=== PATIENT | female | born 1980 | race African-American/Black ===

== ENCOUNTER 2018-01-31 10:38 | Outpatient (CLI) | payer MEDICARE, MEDICAID ==
--- NOTE | 2018-01-31 15:06 | MRI ---
PRE AND POST CONTRAST ENHANCED MRI OF THE BRAIN: Date: 01-31-18 Comparison: 04-12-17 Technique: Multiplanar, multisequence MRI images were obtained of the brain. FINDINGS: Images demonstrate some minimal areas of increased signal on the FLARI sequences in the periventricul ar white matter, unchanged since the previous comparison exam. These are possible small and stable de myelinating lesions. The number and size have not significantly changed since the previous comparison exam. No evidence of enhancement seen on the contrast enhanced images to suggest acute newly develop ed lesions. No other masses or lesions noted. Normal flow voids seen in the major intracranial vessel s. Stable NV appearance of the brain. IMPRESSION: No newly developed masses or lesions seen. Areas of abnormal signal noted on previous examination are stable. POS: [facility]
--- NOTE | 2018-01-31 15:17 | MRI ---
PRE AND POST CONTRAST ENHANCED MRI OF THE CERVICAL SPINE: History: Multiple sclerosis. G35, G82.20 paraplegia. Technique: Multiplanar, multisequence pre and post contrast enhanced MRI images were obtained of the cervical spine. Comparison: 04-12-17 FINDINGS: Images demonstrate no evidence of obvious cord masses or lesions. No abnormal areas of enhancement se en in the spinal cord. There is an intraosseous hemangioma seen at the C6 level, unchanged since the previous comparison MRI . There is some diffuse spinal cord atrophy involving the C3 through C7 spinal cord. This has not sign ificantly changed since the previous comparison MRI. No newly developed lesion is seen within the sp inal cord. C1-2, C2-3: Unremarkable. C3-4: There is a mild broad based disc osteophyte complex minimally but not significantly compressing the thecal sac. The neural foramen are patent. C4-5: There is a broad based disc osteophyte complex centrally compressing the thecal sac at C4-5. Th ere is moderate to severe bilateral C4-5 neural foraminal narrowing due to uncal vertebral osteophyte hypertrophy. This is also unchanged since the previous exam. C5-6: There is a broad based disc osteophyte complex centrally compressing the thecal sac resulting i n a moderate degree of thecal sac compression. No evidence of cord compression is seen. There is mild bilateral C5-6 neural foraminal narrowing due to uncal vertebral osteophyte hypertrophy. This is sta ble and unchanged. C6: Again, intraosseous hemangioma is seen. No significant interval changes seen. C6-7: Unremarkable. C7-T1: Unremarkable. IMPRESSION: C4-5 and C5-6 neural foraminal narrowing and disc degenerative changes, unchanged since the previous comparison MRI. No significant interval change is seen. POS: [facility]
--- NOTE | 2018-01-31 15:35 | MRI ---
PRE AND POSTCONTRAST ENHANCED MRI IMAGES THORACIC SPINE: COMPARISON: Comparison is made to previous exam from 04/12/17. FINDINGS: Multiplanar, multisequence pre- and postcontrast-enhanced MRI images thoracic spine demonstrate again right T8 area of signal abnormalitie seen in the pedicle unchanged since the previous exam. No othe r vertebral body abnormality is seen. Disk spaces are unremarkable. The neural foramen are patent. Area of upper and mid thoracic spinal cord atrophy is again seen. Minimal areas of T2 signal increa se is seen in the anterior aspect of th cotto cord at the T4 and T5 levels. MRI appearance is stab le and unchanged. No newly developed masses or lesions seen. IMPRESSION: Stable MRI images of the spinal cord. POS: [facility]
[2018-01-31] MEDS ORDERED: Gadobenate Dimeglumine 529 MG/1 ML (20ML VIAL) ONE (15:43)
== END 2018-01-31 10:39 | disposition home or self-care (01) ==
LOC: MRI 10:38
PROVIDERS: ATTEND Psychiatry & Neurology Neurology
DX: G35 Multiple sclerosis (principal); G82.20 Paraplegia, unspecified; R20.2 Paresthesia of skin; M47.892 Other spondylosis, cervical region; M99.81 Other biomechanical lesions of cervical region
CPT/HCPCS: 70553; 72156; 72157; A9579

== ENCOUNTER 2018-08-08 09:02 | Outpatient (CLI) | payer MEDICARE, MEDICAID ==
[2018-08-08] MEDS ORDERED: Gadobenate Dimeglumine 529 MG/1 ML (20ML VIAL) ONE (12:07)
--- NOTE | 2018-08-08 15:04 | MRI ---
MRI BRAIN WITH AND WITHOUT CONTRAST: HISTORY: Multiple sclerosis. COMPARISON: 12/31/2017 TECHNIQUE: Multiplanar, multisequence MR images were obtained of the brain with and without IV contrast. FINDINGS: There are very minimal foci of abnormal high FLAIR signal in the periventricular white matter. These are stable compared to the prior examination, without new lesions. The most prominent is in the lef t parietal lobe, with a more subtle lesion in the right frontal periventricular white matter. No abn ormal enhancement is seen to suggest active disease. There is no evidence of hydrocephalus, intracranial hemorrhage, or extraaxial fluid collections. The expected flow voids are present. The calvarium and overlying soft tissues are unremarkable. The visualized paranasal sinuses and mast oid air cells are well aerated. IMPRESSION: Stable white matter foci may be secondary to multiple sclerosis. There is no evidence of active dise ase or progression of disease. POS: [facility]
--- NOTE | 2018-08-08 15:11 | MRI ---
MRI THORACIC SPINE WITH AND WITHOUT CONTRAST: 08/08/2018 HISTORY: Multiple sclerosis. COMPARISON: 01/31/2018 TECHNIQUE: Multiplanar, multisequence MR imaging of the thoracic cord with and without contrast. FINDINGS: There is no anterolisthesis or retrolisthesis seen within the thoracic spine. The sagittal STIR imaging demonstrates no focal area of osseous marrow edema. A trace of bilateral pleural fluid is noted. There is no significant central canal or neural foraminal stenosis at any level within the thoracic s pine. Stable T2 hyperintense lesion noted within the pedicle on the right, at the T8 level. As seen on prior imaging, there is subtle, vague, T2 hyperintensity within the upper thoracic cord, a t the T4 level, centrally, and involving the anterior right aspect of the cord at T5. There is stabl e mild upper thoracic cord volume loss. No new T2 hyperintensities are seen within the thoracic cord . Post contrast imaging demonstrates no abnormal enhancement involving the imaged vertebral bodies o r intervertebral disks. No enhancing lesions are seen within the thoracic cord. IMPRESSION: 1. Stable MRI of the thoracic spine, as described above. 2. Subtle T2 hyperintensity within the upper thoracic cord is again consistent with demyelinating di sease. 3. No enhancing lesions or new lesions are noted. POS: [facility]
--- NOTE | 2018-08-08 15:17 | MRI ---
MRI OF THE LUMBAR SPINE WITH AND WITHOUT CONTRAST 08/08/18 COMPARISON: None. HISTORY: Multiple sclerosis. TECHNIQUE: Multiplanar and multisequence MR imaging of the lumbar spine is provided with and without contrast. FINDINGS: The sagittal STIR imaging demonstrates no focal areas of osseous marrow edema. There is no anterolist hesis of retrolisthesis noted within the lumbar spine. On the basis of five lumbar type vertebral bod ies, conus medullaris terminates at the T12-L1 level. T12-L1: Mild bilateral facet hypertrophy. Intervertebral disc height and signal intensity within norm al limits with no central canal or neural foraminal stenosis. L1-2: No significant central canal or neural foraminal stenosis. Intervertebral disc height and signa l intensity within normal limits. L2-3: A small left foraminal disc protrusion. Intervertebral disc height and signal intensity within normal limits. No central canal or neural foraminal stenosis. L3-4: Mild facet hypertrophy on the left. Intervertebral disc height and signal intensity within norm al limits with no central canal and neural foraminal stenosis. L4-5: Mild facet hypertrophy with no central canal or neural foraminal stenosis. Intervertebral disc height and signal intensity within normal limits. L5-S1: Unremarkable. Postcontrast imaging demonstrates no abnormal enhancement within the lumbar spine. There is abnormal partially visualized lobulated T2 hyperintensity within the pelvis. This includes free pelvic fluid in the cul-de-sac and the left hemipelvis. There is a partially imaged lobulated, p ossibly septated, T2 hyperintense lesion within the right hemipelvis measuring at least 6.4 cm. Dedic ated imaging of the pelvis is advised. This is only seen on the sagittal imaging. It is not visualize d on the axial sequences. IMPRESSION: 1. Abnormalities within the pelvis including free pelvic fluid as well as a lobulated T2 hyperin tense right hemipelvis mass measuring at least 6.4 cm. Dedicated imaging of the pelvis via ultrasound is advised. 2. No significant central canal or neural foraminal stenosis within the lumbar spine. Code T
--- NOTE | 2018-08-08 15:25 | MRI ---
MRI OF THE CERVICAL SPINE WITH AND WITHOUT CONTRAST: Date: 08-08-18 History: Multiple sclerosis. Technique: Multiplanar, multisequence MR imaging of the cervical spine was obtained with and without contrast. FINDINGS: Stable C6 hemangioma noted. The sagittal STIR imaging demonstrates no focal area of osseous marrow ed dori. There is no anterolisthesis or retrolisthesis noted. C2-3: Intervertebral disc height and signal intensity within normal limits with no central or neural foraminal stenosis. C3-4: Intervertebral disc height and signal intensity within normal limits with no significant centra l canal or neural foraminal stenosis. C4-5: There is disc space narrowing and disc desiccation with central annular tear. There is disc bul ge and small left paracentral disc protrusion. There is associated mild central canal stenosis with e ffacement of the ventral thecal sac as well as bilateral mild neural foraminal stenosis, unchanged. C5-6: There is disc space narrowing, disc desiccation, and disc bulge with effacement of the ventral thecal sac and mild stable central canal stenosis. No significant neural foraminal stenosis. C6-7: No significant central canal or neural foraminal stenosis. There is mild disc bulge. C7-T1: No significant central canal or neural foraminal stenosis. Mild cervical cord volume loss is again noted, unchanged when compared to prior imaging. On the axial T2 weighted imaging there is hazy increased T2 signal within the cervical cord from the axial level of the C3-4 interspace through the axial level of the C6 vertebral level, grossly unchang ed, consistent with the patient's history of demyelinating disease. There is associated cervical cord volume loss. These findings are stable when compared to multiple prior examination. No new lesions a re noted. There is no abnormal enhancement identified within the cervical spine. IMPRESSION: Stable cervical spine MRI as detailed above. POS: [facility]
== END 2018-08-08 09:03 | disposition home or self-care (01) ==
LOC: MRI 09:02
PROVIDERS: ATTEND Psychiatry & Neurology Neurology
DX: G35 Multiple sclerosis (principal); R93.7 Abnormal findings on diagnostic imaging of other parts of musculoskeletal system; R90.82 White matter disease, unspecified; M50.321 Other cervical disc degeneration at C4-C5 level; M50.221 Other cervical disc displacement at C4-C5 level; M48.02 Spinal stenosis, cervical region; M99.81 Other biomechanical lesions of cervical region; M50.322 Other cervical disc degeneration at C5-C6 level; M50.823 Other cervical disc disorders at C6-C7 level; D18.09 Hemangioma of other sites
CPT/HCPCS: 70553; 72156; 72157; 72158; A9579

== ENCOUNTER 2019-01-10 08:29 | Outpatient (CLI) | payer MEDICARE, MEDICAID ==
[2019-01-10] MEDS ORDERED: Gadobenate Dimeglumine 529 MG/1 ML (20ML VIAL) ONE (09:28)
--- NOTE | 2019-01-10 11:23 | MRI ---
FExam: Brain MRI with and without contrast HISTORY: Multiple sclerosis COMPARISON: 08/08/2018, 04/12/2017 FINDINGS: Gradient echo sequence: No hemorrhage Calvarium: Appropriate T1 marrow signal intensity Midline brain parenchyma: Unremarkable Cerebrum:Stable minimal T2 and FLAIR white matter hyperintensities involving the left and right coron a radiata/centrum semiovale. No associated restricted diffusion or enhancement. Ventricles: No evidence of hydrocephalus. Sinuses and mastoid air cells: Adequate aeration Diffusion: Central arterial flow is maintained. Absent restricted diffusion. Postcontrast images: No pathologic enhancement of the brain parenchyma. IMPRESSION: 1. Stable minimal T2 and FLAIR white matter hyperintensities without associated enhancement or restr icted diffusion. 2. No MR evidence of an active demyelinating plaque.
--- NOTE | 2019-01-10 11:29 | MRI ---
FPre and postcontrast enhanced MRI images lumbar spine. Multiplanar multisequence pre and postcontrast enhanced MRI images lumbar spine obtained. Again areas of abnormal septated fluid density seen in the pelvis anterior to the sacrum coccygeal re gion. Pelvic pathology cannot be excluded correlate with pre and postcontrast enhanced MRI of the pel vis. L1-2: Unremarkable except L2-3: There is minimal facet hypertrophy. A tiny amount of fluid seen in th e L2-3 facet joint. L3-4: There is minimal facet hypertrophy. Central canal and neural foramen are patent. L5-4-5: There is minimal facet hypertrophy. No significant degree of central or neural foraminal narr owing seen. L5-S1: Unremarkable. IMPRESSION: septated increased T2 signal areas seen within the pelvis. Cystic pelvic malignancy canno t be excluded. Correlate with additional pelvic imaging and clinical exam.
--- NOTE | 2019-01-10 11:30 | MRI ---
FMRI cervical spine with and without contrast: 01/10/2019 COMPARISON: 08/08/2018 HISTORY: Multiple sclerosis TECHNIQUE: Multiplanar multisequence MR imaging of the cervical spine with and without contrast FINDINGS: Stable T2 hyperintense vertebral body lesion at C6, configuration most consistent with a be nign hemangioma. STIR imaging demonstrates no focal area of osseous marrow edema. C2-3: No central canal or neural foraminal stenosis C3-4: No significant central canal or neural foraminal stenosis C4-5: There is disc space narrowing and disc desiccation with disc bulge partially effacing the ventr al thecal sac and causing mild central canal stenosis. There is mild/moderate neural foraminal stenos is on the right on the basis of uncovertebral osteophyte formation and disc bulge. No significant lef t neural foraminal stenosis. C5-6: There is disc space narrowing and disc desiccation with disc bulge partially effacing the ventr al thecal sac and causing mild central canal stenosis. No significant neural foraminal stenosis on ei ther side. C6-7: There is disc desiccation and mild disc bulge with no central canal or neural foraminal stenosi s. C7-T1: No significant central canal or neural foraminal stenosis. Postcontrast imaging demonstrates no abnormal enhancement involving the cervical cord, the imaged oss eous structures, or the intervertebral discs aside from the stable hemangioma of C6 vertebral body. As seen on prior imaging there are foci of increased T2 signal within the cervical cord consistent wi th the patient's history of demyelinating disease. This includes a faint focus of increased signal ac tivity within the anterior aspect of the cord at the cervical medullary junction. Patchy areas of inc reased signal intensity are also noted at the C3-4 level, C4-5 level, and C5-6 level. There is associ ated volume loss involving the cervical cord. No enhancing cord lesions. No new lesions are seen. IMPRESSION: No significant interval change in spinal cord volume loss and multiple foci of increased signal consistent with multiple sclerosis. No new lesions or enhancing lesions. Degenerative changes as detailed above.
--- NOTE | 2019-01-10 11:37 | MRI ---
FPre and postcontrast enhanced MRI images thoracic spine. HISTORY: Multiple sclerosis. Comparison made to previous MRI from 08/08/2018. Pre and postcontrast enhanced MRI images thoracic spine demonstrate small areas of increased T2 signa l in the right anterior T4 and T5 levels. These areas were present on previous comparison MRI and are unchanged. No evidence of other masses are newly developed lesions seen. Area of signal abnormality remains in the right T7 pedicle. No significant evidence of disc herniations, spinal stenosis or neural foraminal narrowing seen. IMPRESSION: Stable MRI appearance of the thoracic spine.
== END 2019-01-10 08:30 | disposition home or self-care (01) ==
LOC: MRI 08:29
PROVIDERS: ATTEND Nurse Practitioner Acute Care
DX: G35 Multiple sclerosis (principal); G82.20 Paraplegia, unspecified; M47.812 Spondylosis without myelopathy or radiculopathy, cervical region; R90.89 Other abnormal findings on diagnostic imaging of central nervous system
CPT/HCPCS: 70553; 72156; 72157; 72158; A9577

== ENCOUNTER 2019-07-19 12:02 | Outpatient (CLI) | payer MEDICARE, MEDICAID ==
--- NOTE | 2019-07-19 14:51 | MRI ---
Exam: Brain MRI with and without contrast HISTORY: Follow-up exam for multiple sclerosis. COMPARISON: 01/10/2019 FINDINGS: Gradient echo sequence: No hemorrhage Calvarium: Appropriate T1 marrow signal intensity Midline brain parenchyma: Unremarkable Cerebrum:No parenchymal mass, mass effect or midline shift. Brain volume is age-appropriate. Cortical stephens-white matter differentiation preserved. White matter: Stable solitary left frontal and right posterior coleman radiata/centrum semiovale white matter hyperintensities. No associated restricted diffusion or enhancement. Ventricles: No evidence of hydrocephalus. Sinuses and mastoid air cells: Adequate aeration Diffusion: Central arterial flow is maintained. Absent restricted diffusion. Postcontrast images: No pathologic enhancement of the brain parenchyma. IMPRESSION: 1. No significant interval change. Stable T2 and FLAIR white matter hyperintensities. 2. No associated restricted diffusion or enhancement to suggest active demyelination..
--- NOTE | 2019-07-19 15:02 | MRI ---
MRI THORACIC SPINE WITH AND WITHOUT CONTRAST: Multiplanar, multisequential imaging obtained including postcontrast images. INDICATION: Followup multiple sclerosis. COMPARISON: Comparison s made to MRI thoracic spine 01/10/2019 and 08/08/2018. FINDINGS: T2 sequences show increased signal in the thoracic cord at the T4 and T5 levels. This is not appreci ated in the sagittal T2 images but is seen on the gradient echo sagittal. No definite enhancement is identified in this region on the postcontrast images. The signal abnormality in the cord at this level appears stable when compared to the prior exam of 01/10/2019. Thoracic vertebrae maintain normal height and alignment. Disk spaces are normally maintained. No di sk bulge or protrusion. IMPRESSION: Increased T2 signal in thoracic cord is seen at T4-T5. This appears stable from 01/10/2019. POS: [facility]
--- NOTE | 2019-07-19 15:18 | MRI ---
CERVICAL SPINE MRI WITH AND WITHOUT CONTRAST: HISTORY: Multiple sclerosis. COMPARISON: 01/10/2019. FINDINGS: Appropriate T1 marrow signal intensity of the cervical vertebra. Cervical spine vertebral body height is maintained. There is no fracture. No significant STIR hyperintensity to suggest vertebral body edema or ligamentous injury. Stable straightening of the normal cervical lordosis. Stable intrinsic T 1 and T2 hyperintensity at C6 compatible with meningioma. Postcontrast images do not demonstrate abnormal enhancement with regards to the vertebral bodies. The re is no abnormal enhancement within the thecal sac including the visualized brain parenchyma, cervicomedullary junction, cervical cord and the upper thoracic cord. There are stable scattered T2 hyperintensities throughout the cervical spine, cervicomedullary juncti on, C4-C5, C5-C6 6-C7 levels. There is stable mild volume loss. No evidence of enhancement. T2-C3: No significant central canal stenosis or significant neural foraminal narrowing. C3-C4: No significant central canal stenosis. Mild right neural foraminal narrowing. Left neural fora men is minimally narrowed. C4-C5: Broad-based discussed by complex effaces subarachnoid space. There is flattening and deformity the cervical cord. Moderate central canal stenosis. Moderate right and [id number] left neural foraminal narrowing. C5-C6: Broad-based discussed by complex effaces subarachnoid space. This finding deformity cervical c ord. Mild to moderate central canal stenosis. Mild bilateral neural foraminal narrowing. C6-C7: Central disc protrusion superimposed upon a broad based disc bulge results in mild central can al stenosis. Neural foramina are patent. C7-T1: No significant central canal stenosis. IMPRESSION: 1. Stable degenerative changes of the cervical spine. 2. Redemonstration of multiple T2 hyperintensities in the cervical cord with associated volume loss. Demyelinating plaques are suspected. No associated enhancement. There are no new lesions in the visualized spinal cord. Transcribed Date/Time: 07/19/2019 3:29 PM
== END 2019-07-19 12:03 | disposition home or self-care (01) ==
LOC: MRI 12:02
PROVIDERS: ATTEND Psychiatry & Neurology Neurology
DX: G35 Multiple sclerosis (principal); M47.812 Spondylosis without myelopathy or radiculopathy, cervical region; R93.7 Abnormal findings on diagnostic imaging of other parts of musculoskeletal system
CPT/HCPCS: 70553; 72156; 72157

== ENCOUNTER 2019-11-29 12:27 | Day surgery (SDC) | payer MEDICARE, MEDICAID ==
[~2019-11-29 12:27] MED LIST: methylPREDNISolone Sod Succ 1 GM in Sodium Chloride 0.9% 250 ML 250 ML IVPB SCH
[2019-11-29] MEDS ORDERED: Sodium Chloride 0.9% 20 ML ONE (12:36)
[2019-11-30] MEDS ORDERED: methylPREDNISolone Sod Succ 1 GM in Sodium Chloride 0.9% 250 ML 250 ML IVPB SCH (06:00)
== END 2019-11-29 15:23 | disposition home or self-care (01) ==
LOC: ONC/OP 12:27
PROVIDERS: ATTEND Psychiatry & Neurology Neurology
DX: G35 Multiple sclerosis (principal)
CPT/HCPCS: 96365; J2930; J7050

== ENCOUNTER 2019-11-30 09:58 | Day surgery (SDC) | payer MEDICARE, MEDICAID ==
[2019-11-30] MEDS ORDERED: Sodium Chloride 0.9% 20 ML ONE (10:32)
[2019-11-30 11:55] VITALS: BP 127/60; TEMP 98.5
== END 2019-11-30 11:57 | disposition home or self-care (01) ==
LOC: ONC/OP 09:58
PROVIDERS: ATTEND Psychiatry & Neurology Neurology
DX: G35 Multiple sclerosis (principal)
CPT/HCPCS: 96365; J1642; J2930; J7050